=== PATIENT | female | born 1970 | race African-American/Black ===

== ENCOUNTER 2019-06-04 10:19 | Emergency (ER) | payer SELFPAY ==
[~2019-06-04] VITALS: Ht 160 cm; Wt 90.7 kg
[2019-06-04 10:40] VITALS: BP 131/83
--- NOTE | 2019-06-04 10:46 | PHYS DOC ---
Past Medical History Past Medical History: No Pertinent History Past Surgical History: Cholecystectomy, Tubal ligation Alcohol Use: None Drug Use: None Adult General Chief Complaint Chief Complaint: Congestion HPI HPI Patient is a 49 year old female who presents with congestion, runny nose, body aches, subjective fever, eye pressure, loss of appetite has been ongoing for 1 week. The patient denies any pain at this time. The patient states she has been able to keeps fluids down at home. Review of Systems Review of Systems Constitutional: Reports fever or chills [] Eyes: Denies change in visual acuity, redness, or eye pain [] HENT: Reports nasal congestion, runny nose. Respiratory: Denies cough or shortness of breath [] Cardiovascular: No additional information not addressed in HPI [] GI: Denies abdominal pain, nausea, vomiting, bloody stools or diarrhea [] : Denies dysuria or hematuria [] Musculoskeletal: Denies back pain or joint pain [] Integument: Denies rash or skin lesions [] Neurologic: Reports headache, Denies focal weakness or sensory changes [] Endocrine: Denies polyuria or polydipsia [] Complete systems were reviewed and found to be within normal limits, except as documented in this note. Current Medications Current Medications Current Medications Medications (Trade) Dose Ordered Sig/[facility] Start Time Stop Time Status Last Admin Dose Admin Dexamethasone (Decadron) 10 mg 1X STAT 06/04/19 10:56 06/04/19 10:58 DC 06/04/19 11:02 10 MG Allergies Allergies Allergies Coded Allergies Type Severity Reaction Last Updated Verified No Known Drug Allergies 06/25/13 No Physical Exam Physical Exam Constitutional: Well developed, well nourished, no acute distress, non-toxic appearance. [] HENT: Normocephalic, atraumatic, bilateral external ears normal, oropharynx moist, no oral exudates, nose normal. [] Eyes: PERRLA, EOMI, conjunctiva normal, no discharge. [] Neck: Normal range of motion, no tenderness, supple, no stridor. [] Cardiovascular:Heart rate regular rhythm, no murmur [] Lungs & Thorax: Bilateral breath sounds clear to auscultation [] Abdomen: Bowel sounds normal, soft, no tenderness, no masses, no pulsatile masses. [] Skin: Warm, dry, no erythema, no rash. [] Back: No tenderness, no CVA tenderness. [] Extremities: No tenderness, no cyanosis, no clubbing, ROM intact, no edema. [] Neurologic: Alert and oriented X 3, normal motor function, normal sensory function, no focal deficits noted. [] Psychologic: Affect normal, judgement normal, mood normal. [] Current Patient Data Vital Signs Vital Signs Date Time Temp Pulse Resp B/P (MAP) Pulse Ox O2 Delivery O2 Flow Rate FiO2 06/04/19 10:40 99.0 66 16 131/83 (99) 99 Room Air 99.0 Lab Values Laboratory Tests Test 06/04/19 11:00 Influenza Type A Antigen Negative (NEGATIVE) Influenza Type B Antigen Negative (NEGATIVE) EKG EKG [] Radiology/Procedures Radiology/Procedures [] Course & Med Decision Making Course & Med Decision Making Pertinent Labs and Imaging studies reviewed. (See chart for details) A medical screening exam was performed on this patient and the patient does not appear to be having a medical emergency. Her symptoms are not of sufficient severity and within reasonable medical probability it is unlikely the absence of immediate medical attention would result in placing the health of the individual (or, with respect to a woman, the health of the woman or her unborn child) in serious jeopardy, serious impairment to bodily functions, or serious dysfunction of any bodily organ or part. If , the patient is not in labor Also gave Decadron and ordered a Flu Test. Flu is negative. Dragon Disclaimer Dragon Disclaimer This electronic medical record was generated, in whole or in part, using a voice recognition dictation system. Departure Departure Impression: Primary Impression: Encounter for medical screening examination Additional Impression: Viral illness Disposition: HOME, SELF-CARE Condition: STABLE Referrals: NON,STAFF (PCP) Patient Instructions: Medical Screening Exam Additional Instructions: Thank you for visiting [facility]. We appreciate you trusting us with your care. If any additional problems come up don't hesitate to return to visit us. Please follow up with your primary care provider so they can plan additional care if needed and know about the problem that you had. If symptoms worsen come back to the Emergency Department. Any concerning symptoms that start such as chest pain, shortness of air, weakness or numbness on one side of the body, running high fevers or any other concerning symptoms return to the ER. Please start taking Zyrtec, Mucinex, and Flonase. Your Flu is negative. Problem Qualifiers PANDA MORALES APRN Jun 04, 2019 10:46
[2019-06-04] MEDS ORDERED: DEXAMETHASONE 4 MG TABLET PO STA (10:56)
[2019-06-04 11:29] LABS: INFLUENZA A PATIENT NEGATIVE (NEGATIVE); INFLUENZA B PATIENT NEGATIVE (NEGATIVE)
== END 2019-06-04 11:41 | disposition home or self-care (01) ==
LOC: ER 10:19
DX: B34.9 Viral infection, unspecified (principal); R50.9 Fever, unspecified; R09.89 Other specified symptoms and signs involving the circulatory and respiratory systems; R51 Headache; Z90.49 Acquired absence of other specified parts of digestive tract; Z98.51 Tubal ligation status
CPT/HCPCS: 87804; 99284; J8540

== ENCOUNTER 2019-12-23 15:55 | Emergency (ER) | payer OTHER ==
[~2019-12-23] VITALS: Ht 160 cm; Wt 91.0 kg
[2019-12-23 16:10] VITALS: BP 151/74
[2019-12-23] MEDS ORDERED: ACETAMINOPHEN 500 MG TABLET PO ONE (17:00)
--- NOTE | 2019-12-23 17:03 | RAD ---
Examination: HAND RIGHT 3V History: Reason: Injury, 4th metacarpal pain / Spl. Instructions: / History: Comparison/Correlation: None Findings: A total 3 images of the right hand were obtained. Joint spaces are normal. No fracture or bone insertion. Soft tissues are unremarkable. No significant degenerative change. Impression: No suspicious process. If symptoms persist, interval follow-up with dedicated views of the fourth digit should be considered. Electronically signed by: Isauro Mayo MD (12/23/2019 4:59 PM) [id number]
--- NOTE | 2019-12-23 17:20 | PHYS DOC ---
Past Medical History Past Medical History: No Pertinent History Past Surgical History: Cholecystectomy, Tubal ligation Smoking Status: Former Smoker Alcohol Use: None Drug Use: None General Adult EDM: Chief Complaint: HAND PROBLEM HPI: HPI: Patient is a 49 year old AA female who presents to the emergency department with complaints of pain over her right fourth digit proximal metacarpal joint. 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 Patient states that the area was swollen but it popped again and the swelling has seemed to improve. She denies any decreased range of motion of the affected hand, numbness, tingling, or weakness. She currently rates the pain a 5 out of 10 on the pain scale, she denies taking any medication prior to arrival for relief of the pain. Review of Systems: Review of Systems: Constitutional: Denies fever or chills. [] Eyes: Denies change in visual acuity. [] HENT: Denies nasal congestion or sore throat. [] Respiratory: Denies cough or shortness of breath. [] Musculoskeletal: Denies back pain; see HPI Integument: Denies rash. [] Neurologic: Denies headache, focal weakness or sensory changes. [] Psychiatric: Denies depression or anxiety. [] Heart Score: Risk Factors: Risk Factors: DM, Current or recent (<one month) smoker, HTN, HLP, family history of CAD, obesity. Risk Scores: Score 0 - 3: 2.5% MACE over next 6 weeks - Discharge Home Score 4 - 6: 20.3% MACE over next 6 weeks - Admit for Clinical Observation Score 7 - 10: 72.7% MACE over next 6 weeks - Early Invasive Strategies Current Medications: Current Medications Medications (Trade) Dose Ordered Sig/[facility] Start Time Stop Time Status Last Admin Dose Admin Acetaminophen (Tylenol) 1,000 mg 1X ONCE 12/23/19 17:00 12/23/19 17:01 DC Allergies: Allergies: Allergies Coded Allergies Type Severity Reaction Last Updated Verified No Known Drug Allergies 06/25/13 No Physical Exam: PE: Constitutional: Well developed, well nourished, no acute distress, non-toxic appearance, obese. [] HENT: Normocephalic, atraumatic, bilateral external ears normal, nose normal. [] Eyes: PERRLA, EOMI, conjunctiva normal, no discharge. [] Neck: Normal range of motion, no stridor. [] Cardiovascular:Heart rate regular rhythm Lungs & Thorax: Respirations even and unlabored, no retractions, no respiratory distress Skin: Warm, dry, noerythema, no rash. [] Extremities: Right hand: Tenderness over the proximal fourth metacarpal joint of the right hand, no crepitus, no obvious deformity, full extension and flexion of the hand, no cyanosis, no edema. [] Neurologic: Alert and oriented X 3, no focal deficits noted. [] Psychologic: Affect normal, judgement normal, mood normal. [] Current Patient Data: Vital Signs: Vital Signs Date Time Temp Pulse Resp B/P (MAP) Pulse Ox O2 Delivery O2 Flow Rate FiO2 12/23/19 16:10 98.2 86 16 151/74 (99) 97 Room Air 98.2 EKG: EKG: [] Radiology/Procedures: Radiology/Procedures: PROCEDURE: HAND RIGHT 3V Examination: HAND RIGHT 3V History: Reason: Injury, 4th metacarpal pain / Spl. Instructions: / History: Comparison/Correlation: None Findings: A total 3 images of the right hand were obtained. Joint spaces are normal. No fracture or bone insertion. Soft tissues are unremarkable. No significant degenerative change. Impression: No suspicious process. If symptoms persist, interval follow-up with dedicated views of the fourth digit should be considered.[] Course & Med Decision Making: Course & Med Decision Making Pertinent Labs and Imaging studies reviewed. (See chart for details) [] Dragon Disclaimer: Dragon Disclaimer: This electronic medical record was generated, in whole or in part, using a voice recognition dictation system. Departure Departure Impression: Primary Impression: Pain in joint of right hand Disposition: HOME, SELF-CARE Condition: STABLE Referrals: NO PCP (PCP) Patient Instructions: Hand Injuries Additional Instructions: You may take Tylenol or ibuprofen as needed for pain. Wear the Kvng wrap that was applied as needed for comfort. Recommend application of ice to sore areas as needed for comfort. Follow-up with your primary care doctor symptoms persist, return to the ER symptoms worsen. Justicifation of Admission Dx: Justifications for Admission: Justification of Admission Dx: N/A DILCIA BLANCO TRANSCRIPTER Dec 23, 2019 17:20
== END 2019-12-23 17:30 | disposition home or self-care (01) ==
LOC: ER 15:55
DX: M79.641 Pain in right hand (principal); Z87.891 Personal history of nicotine dependence; X50.9XXA Other and unspecified overexertion or strenuous movements or postures, initial encounter; Y93.89 Activity, other specified; Y92.89 Other specified places as the place of occurrence of the external cause; Y99.8 Other external cause status
CPT/HCPCS: 73130; 99283